=== PATIENT | male | born 1985 ===

== ENCOUNTER 2019-01-02 11:45 | Outpatient (CLI) | payer OTHER ==
[~2019-01-02] VITALS: Ht 172.7 cm; Wt 113.4 kg
== END 2019-01-02 12:00 | disposition home or self-care (01) ==
LOC: OFIC 805 11:45
DX: R22.1 Localized swelling, mass and lump, neck (principal)

== ENCOUNTER 2019-02-06 10:55 | Outpatient (CLI) | payer OTHER ==
[~2019-02-06] VITALS: Ht 152.4 cm; Wt 113.4 kg
== END 2019-02-06 11:10 | disposition home or self-care (01) ==
LOC: OFIC 805 10:55
DX: K11.20 Sialoadenitis, unspecified (principal); E04.1 Nontoxic single thyroid nodule; K11.5 Sialolithiasis